=== PATIENT | male | born 2005 | race Caucasian/White ===

== ENCOUNTER 2024-05-24 14:59 | Emergency (ER) | payer OTHER, SELFPAY ==
[2024-05-24 15:03] VITALS: BP 146/80; PULSE 115; RESP 16; TEMP 37.4; O2SAT 94; BMI 24.9
--- NOTE | 2024-05-24 15:09 | ED.FEVER ---
HPI - Fever General Time Seen by Provider: 15:09 Date Seen: 05/24/24 Chief Complaint: Fever Stated Complaint: fever x 6 days Time Seen by Provider: 05/24/24 15:00 Source: patient and RN notes reviewed Mode of arrival: ambulatory Limitations: no limitations History of Present Illness HPI Narrative: This 18-year-old male is coming in with ongoing fever and prominent cough. He has had temperatures almost up to 103, has had fevers this illness and not improving. He is alternating Tylenol and ibuprofen, this does help his fever go down but it comes back. He has nasal congestion, headache, sinus pressure but no dental pain with this. He flew back from [place], attends [facility]. He is wondering if he needs an antibiotic at this time as this illness is ongoing and worsening, wonders about possibility of a secondary infection. He has no history of asthma. MD elicited complaint: fever Related Data Home Medications ?Medication ?Instructions ?Recorded ?Confirmed No Known Home Medications 05/24/24 05/24/24 Allergies Allergy/AdvReac Type Severity Reaction Status Date / Time No Known Drug Allergies Allergy Verified 05/24/24 15:07 PFSH PFS Social History Smoking Status: Never smoker How often do you have a drink containing alcohol: never AUDIT-C Alcohol total score: 0 Non-prescribed substance use: denies use Exam Const Vital Signs, click to edit/add: Vital Signs - 24 hr 05/24/24 15:03 Temperature 99.3 F Pulse Rate [Pulse Oximeter] 115 H Respiratory Rate 16 Blood Pressure [Right Upper Arm] 146/80 H Pulse Oximetry 94 Oxygen Delivery Method Room Air Course Course ED Course: Awaiting triple viral swab that nursing staff collected on arrival. Six days in with this high of a fever, his prominent coughing, do wonder about community-acquired pneumonia versus secondary bacterial pneumonia. Will look at a chest x-ray, patient is happy to have this done. Reevaluation(s) Time of Reevaluation #1: 15:56 Reevaluation #1: Did provide patient with a picture of his x-ray, he will send it to his mom whom is a musculoskeletal radiologist. Reviewed with him that I do think there is pneumonia in the right lower side on the chest x-ray, radiologist has yet over-read this. Time of Reevaluation #2: 16:23 Reevaluation #2: Reviewed with patient that he has influenza B, he is out of treatment guidelines for antivirals to be effective. He very likely has a secondary bacterial pneumonia, radiologist did agree that there is pneumonia at the right lower lobe. Post influenza secondary pneumonia as are typically treated with Augmentin. He would prefer his medication out of [facility] but if that doesn't work, will send to pharmacy. Will provide a 10 day course of Augmentin 875 mg p.o. b.i.d.. Vital Signs Vital signs: Initial Vital Signs Sepsis Recent Fever Within 48 Hours Yes 05/24/24 15:02 Sepsis New/Unexplained Change in Mental Status No 05/24/24 15:02 Sepsis Action Taken by Nursing No Action Required 05/24/24 15:02 Vital Signs Temperature 99.3 F 05/24/24 15:03 Pulse Rate 115 H 05/24/24 15:03 Respiratory Rate 16 05/24/24 15:03 Blood Pressure 146/80 H 05/24/24 15:03 Pulse Oximetry 94 05/24/24 15:03 Oxygen Delivery Method Room Air 05/24/24 15:03 Temperature 99.3 F 05/24/24 15:03 Pulse Rate 115 H 05/24/24 15:03 Respiratory Rate 16 05/24/24 15:03 Blood Pressure 146/80 H 05/24/24 15:03 Pulse Oximetry 94 05/24/24 15:03 Oxygen Delivery Method Room Air 05/24/24 15:03 MDM - Fever Lab Data Attestation: I reviewed the patient's lab results. Labs: Lab Results 05/24/24 Range/Units 15:10 SARS-CoV-2 (PCR) Negative SARS-CoV-2 (Negative) Influenza Type A (PCR) Negative PCR FLU A (Negative) Influenza Type B (PCR) POSITIVE PCR FLU B A (Negative) RSV (PCR) Negative PCR RSV (Negative) Imaging Data Chest x-ray: Attestation: I have reviewed the pertinent imaging results. My impression: I do believe that there is infiltrate superimposed on the right lower lobe that is developing, await Radiology over-read. Radiologist's impression: Patient: STEWART MONTES Facility:?[facility] Patient ID:?[id number] Site Patient ID:?[id number]. Site :?[id number] Study:?XRay-Chest 1 VIEW PORTABLE-05/24/2024 3:53:33 PM Ordering Physician:?Manny Harp Final Report: INDICATION: Fever, cough. TECHNIQUE: Chest 1 views. COMPARISON: None. FINDINGS: Cardiovascular and mediastinum: Heart size and vasculature are normal in caliber and appearance. Lungs and pleural spaces: Peribronchial thickening with subtle right lower lobe infiltrate. No sign of pleural effusion. No pneumothorax. Bones and soft tissues: No significant findings. IMPRESSION: Peribronchial thickening with subtle right lower lobe infiltrate, likely pneumonia in the appropriate clinical setting. Dictated by Darryl Razo MD @ 05/24/2024 4:14:27 PM (Electronic Signature) Discharge Plan Discharge Clinical Impression: Influenza B, Secondary bacterial pneumonia Patient Disposition: Home, Self-Care Condition: Stable Instructions: Influenza (ED), Bacterial Pneumonia (ED) Additional Instructions: Start Augmentin as soon as possible and take as prescribed. Drink plenty of fluids, get adequate rest. If you are not improving over the next week, feel you are worsening at any point or have increasing concerns, please seek re-evaluation. You are out of treatment guideline window for antivirals to be effective against influenza B. you definitely have a secondary pneumonia on which is what you suspected. We are treating with Augmentin for this. Activity Level: Activity as Tolerated Prescriptions: No Action No Known Home Medications Follow Up/Referrals: Provider,Not a Local [Primary Care Provider] - Stand Alone Forms: [employer] Info Instructions
--- NOTE | 2024-05-24 15:20 | CRLHL7_ITS ---
For Patients: As a result of the Cures Act, medical imaging exams and procedure reports are released immediately into your electronic medical record. You may view this report before your referring provider. If you have questions, please contact your health care provider. INDICATION: Fever, cough. TECHNIQUE: Chest 1 views. COMPARISON: None. FINDINGS: Cardiovascular and mediastinum: Heart size and vasculature are normal in caliber and appearance. Lungs and pleural spaces: Peribronchial thickening with subtle right lower lobe infiltrate. No sign of pleural effusion. No pneumothorax. Bones and soft tissues: No significant findings. IMPRESSION: Peribronchial thickening with subtle right lower lobe infiltrate, likely pneumonia in the appropriate clinical setting. Dictated by Darryl Razo MD @ 05/24/2024 4:14:27 PM (Electronically Signed)
--- OUTSIDE RECORDS SUMMARY | 2024-05-24 15:34 | XMS_ITS | Clinical Summary ---
Author Organization [employer] [facility] Address [address] [place] [id number] Care Team Providers Care Cigar Packing Examiner Name Role Phone Clinic, No Pcp Or Primary Care Provider Unavaila ble Allergies No known active allergies Medications No known medications Active Problems No known active problems Encounters Date Type Department Care Team Description 03/15/2024 Orders Only [facility] [address] [place] [address] Andrés Patel MD <No scans attached> from Last 3 Months Social History Tobacco Use Types Packs/Day Years Used Date Smoking Tobacco: Former Cigarettes Q uit: 08/12/2022 Smokeless Tobacco: Never Tobacco Cessation:Counseling Given: Not Answered Sex and Gender Information Value Date Recorded Sex Assigned at Not on file Legal Sex Male 10:22 AM CDT Gender Identity Not on file Sexual Orientation Not on file Obstetrics History Plan of Treatment Health Maintenance Due Date Last Done Comments Well Child Check for age 3-20 05/03/2007 Tdap 06/03/2015 Depression screening for age 12+ 2016 HIV for age 15-65 06/03/2019 HPV series for age 9-26 (1 - Male 3-dose series) 06/03/2019 BMI (ht and wt on same day) for age 18+ 2022 Hepatitis C screening for age 18-79 2022 COVID-19 vaccine series ( - season) 2023 Tetanus booster 2024 Influenza Vaccine (Season Ended) 2024 Meningococcal series for age 11-21 Aged Out No longer eligible based on patient's age to complete this topic Pneumococcal series for age 6-49 Aged Out No longer eligible based on patient's age to complete this topic Insurance [employer] [facility] Care Teams Cigar Packing Examiner Relationship Specialty Start Date End Date Clinic, No Pcp Or . PCP - General 10/06/23
[2024-05-24 15:57] LABS: PCR FLU A Negative PCR FLU A (Negative); PCR FLU B POSITIVE PCR FLU B (Negative); PCR RSV Negative PCR RSV (Negative); SARS PCR* Negative SARS-CoV-2 (Negative)
== END 2024-05-24 16:33 | disposition home or self-care (01) ==
PROVIDERS: Emergency Provider Family Medicine
DX: J10.1 Influenza due to other identified influenza virus with other respiratory manifestations (principal); J18.9 Pneumonia, unspecified organism
CPT/HCPCS: 71045; 87631; 99283; 99284